=== PATIENT | female | born 1980 | race Caucasian/White ===

== ENCOUNTER 2021-01-03 21:48 | Emergency (ER) | payer OTHER, SELFPAY ==
--- NOTE | ~2021-01-03 | US_ITS ---
EXAMINATION: US OBSTETRICAL ULTRASOUND CLINICAL INFORMATION: Vaginal bleeding. Pelvic pain. COMPARISON: None. LMP: 11/09/2020. Gestational age by maternal dates is 8 weeks, 0 days. Estimated date of delivery by maternal dates is 08/16/2021. TECHNIQUE: Ultrasound of the maternal pelvis is performed using transabdominal and transvaginal transducers. Transvaginal imaging is performed due to inadequate visualization transabdominally. M-mode Doppler is also performed. FINDINGS: There is a single intrauterine gestational sac with visible yolk sac, embryo/fetus, and cardiac activity. There is no significant subchorionic hemorrhage or hematoma. HR: 155 beats per minute. CRL (crown rump length): 1.23 cm (7 weeks 4 days +/- 4 days). MARIO (estimated date of delivery): 08/19/2021 +/- 4 days. MATERNAL ADNEXA: The right maternal ovary measures 3.2 x 1.7 x 2.5 cm. There is a 2.3 cm corpus luteum within the right ovary. The left maternal ovary measures 3.3 x 1.6 x 1.8 cm. There is no significant maternal adnexal mass. Small pelvic free fluid. US/US OB <= 14 weeks fetus IMPRESSION: 1. Single live intrauterine gestation with ultrasound gestational age of 7 weeks 4 days +/- 4 days. 2. Estimated date of delivery is 08/19/2021 +/- 4 days. 3. No maternal adnexal mass or abnormal pelvic ascites.
[2021-01-03 21:50] VITALS: BP 119/75; PULSE 79; RESP 18; TEMP 36.6; O2SAT 97; BMI 20.9
[2021-01-03 22:02] LABS: MANUAL DIFF FLAG NO
[2021-01-03 22:03] LABS: Basophils Percent Auto 0.5 % (0-2); Eosinophils Absolute Auto 0.1 X10*3/uL (0.0-0.4); Eosinophils Percent Auto 1.4 % (0-4); Hematocrit 35.8 % (37-47); Hemoglobin 11.9 g/dl (12.0-16.0); Imm Gran Abs Auto 0.01 X10*3/uL (0.00-0.03); Imm Gran Pct Auto 0.2 % (0.0-0.4); Lymphocytes Absolute Auto 2.2 X10*3/uL (1.2-4.9); Lymphocytes Percent Auto 39.6 % (20-40); Mean Corpuscular HGB Conc 33.2 g/dl (31.0-35.0); Mean Corpuscular Hemoglobin 29.7 pg (27.0-33.0); Mean Corpuscular Volume 89.3 fL (80-98); Mean Platelet Volume 9.2 fL (9.4-12.3); Monocytes Absolute Auto 0.4 X10*3/uL (0.1-1.2); Monocytes Percent Auto 7.5 % (2-11); Neutrophils Absolute Auto 2.8 X10*3/uL (2.0-8.3); Neutrophils Percent Auto 50.8 % (45-73); Platelet Count 224 X10*3/uL (160-400); Red Blood Count 4.01 X10*6/uL (4.20-5.50); White Blood Count 5.6 X10*3/uL (4.8-10.8)
[2021-01-03 22:08] LABS: Glucose Urine UA NEG (NEG); Leukocyte Esterase Urine NEG (NEG); Nitrite Urine NEG (NEG); Specific Gravity - Urine 1.025 (1.005-1.025); Urine Blood TRACE (NEG); Urine Ketones NEG (NEG); Urine Protein NEG (NEG-TRACE)
[2021-01-03 22:10] LABS: Appearance Urine CLEAR; Color Urine YELLOW
[2021-01-03 22:21] LABS: Mucus Urine 3+ /LPF; Squamous Epithelial Cell Urine TRACE /LPF; WBC Urine 0-2 /HPF (0-4)
[2021-01-03 22:29] LABS: Alanine Aminotransferase 19 U/L (0-31); Albumin Level 4.3 g/dL (3.5-5.0); Alkaline Phosphatase 72 U/L (39-117); Anion Gap 13 (12-20); Aspartate Amino Transferase 17 U/L (5-31); Bilirubin Total 0.7 mg/dL (0.0-1.0); Blood Urea Nitrogen 14 mg/dL (9-16); Calcium 8.9 mg/dL (8.4-10.2); Carbon Dioxide 22 mmol/L (22-29); Chloride 109 mmol/L (96-108); Creatinine Clr Calc Pharmacy 108.1; Estimated Glomerular Filt Rate > 60; Glucose Random 87 mg/dL (60-115); Potassium 4.2 mmol/L (3.3-5.1); Sodium 140 mmol/L (135-145); Total Protein 6.8 g/dL (6.5-8.0)
[2021-01-03 22:37] LABS: HCG Quantitative 7984 mIU/mL
--- NOTE | 2021-01-04 01:23 | ED_ITS ---
HPI - General Chief complaint: Vaginal Bleeding Stated complaint: cramping/bleeding () Time Seen by Provider: 01/04/21 00:06 Source: patient Mode of arrival: ambulatory History of Present Illness HPI Narrative: 40-year-old female who presents with LMP at the end of October and took 3 tests 3-5 days ago and now presents with onset of crampy lower abdominal pain associated with vaginal bleeding that started approximately 1830 last night. This is not been associated with fever, chills, nausea, vomiting, diarrhea, or urinary pain/burning/frequency. Related Data Allergies Allergy/AdvReac Type Severity Reaction Status Date / Time sulfamethoxazole Allergy Hives Verified 01/03/21 21:53 [From Bactrim] trimethoprim [From Bactrim] Allergy Hives Verified 01/03/21 21:53 Review of Systems Review of Systems: Pertinent positives and negatives as stated in HPI 10 point review of systems is otherwise negative. PMFSH Past Medical History Source: nursing notes reviewed Medical History No known health problems Social History Social History Patient Tobacco Use Status: Never used Tobacco Use of substances other than those prescribed or required for medical reasons: No Advance Directives: No Advance Directives Information Provided: Yes Patient : Yes Physical Exam Vital Signs: Vital Signs: Last Vital Signs Temp 98 F 01/03/21 21:50 Pulse 86 01/04/21 01:49 Resp 16 01/04/21 01:49 BP 129/77 01/04/21 01:49 Pulse Ox 98 01/04/21 01:49 Body Mass Index 20.9 VITAL SIGNS: Reviewed. GENERAL: Well developed, well nourished, in no acute distress. HEAD: Normocephalic/atraumatic, EYES: PERRLA, EOMI EARS: Ext canals without abnormality OROPHARYNX: no oral lesions noted, posterior pharynx clear LUNGS: Normal breath sounds. No adventitious sounds or accessory muscle use. SpO2<97> CARDIOVASCULAR: Regular rate and rhythm without noted murmurs ABDOMEN: Soft, tenderness to palpation across suprapubic and left lower quadrant/pelvic area, non-distended with bowel sounds. Course Course Course Narrative: This is a 40-year-old female with history and clinical presentation suspicious for SAB and will rule out ectopic. Review of all investigations negative for acute findings other than threatened , IUP, results were explained to the patient that these were preliminary as patient strongly communicating that she needs to get home to her kids as the java technical architect is no longer able to stay. It was strongly stressed to the patient that these were prelim results and that the official read from the radiologist had not been completed. She was also instructed to follow-up with an quality improvement manager within the next 1-2 days for further care. MDM - OB/Uterine Contractions Lab Data Result diagrams: 01/03/21 21:57 01/03/21 21:57 Labs: Lab Results 01/03/21 01/03/21 01/03/21 Range/Units 21:57 21:57 22:02 WBC 5.6 (4.8-10.8) X10*3/uL RBC 4.01 L (4.20-5.50) X10*6/uL Hgb 11.9 L (12.0-16.0) g/dl Hct 35.8 L (37-47) % MCV 89.3 (80-98) fL MCH 29.7 (27.0-33.0) pg MCHC 33.2 (31.0-35.0) g/dl RDW 13.0 (11.0-16.0) % Plt Count 224 (160-400) X10*3/uL MPV 9.2 L (9.4-12.3) fL Immature Gran % (Auto) 0.2 (0.0-0.4) % Neut % (Auto) 50.8 (45-73) % Lymph % (Auto) 39.6 (20-40) % [place] % (Auto) 7.5 (2-11) % Eos % (Auto) 1.4 (0-4) % Baso % (Auto) 0.5 (0-2) % Lymph # (Auto) 2.2 (1.2-4.9) X10*3/uL [place] # (Auto) 0.4 (0.1-1.2) X10*3/uL Eos # (Auto) 0.1 (0.0-0.4) X10*3/uL Baso # (Auto) 0.0 (0.0-0.2) X10*3/uL Abs Immat Gran (auto) 0.01 (0.00-0.03) X10*3/uL Absolute Neuts (auto) 2.8 (2.0-8.3) X10*3/uL Absolute Nucleated RBC 0.000 (0.0-0.012) X10*3/uL Nucleated RBC % (auto) 0.0 (0.0-0.2) /100WBC Sodium 140 (135-145) mmol/L Potassium 4.2 (3.3-5.1) mmol/L Chloride 109 H (96-108) mmol/L Carbon Dioxide 22 (22-29) mmol/L Anion Gap 13 (12-20) BUN 14 (9-16) mg/dL Creatinine 0.65 (0.5-1.4) mg/dL Estim Creat Clear Calc 108.1 Estimated GFR > 60 Random Glucose 87 (60-115) mg/dL Calcium 8.9 (8.4-10.2) mg/dL Total Bilirubin 0.7 (0.0-1.0) mg/dL AST 17 (5-31) U/L ALT 19 (0-31) U/L Alkaline Phosphatase 72 (39-117) U/L Total Protein 6.8 (6.5-8.0) g/dL Albumin 4.3 (3.5-5.0) g/dL Beta HCG, Quant 7984 mIU/mL Urine Color YELLOW Urine Appearance CLEAR Urine pH 6.0 (5.0-8.0) Ur Specific [place] 1.025 (1.005-1.025) Urine Protein NEG (NEG-TRACE) MG/DL Urine Glucose (UA) NEG (NEG) MG/DL Urine Ketones NEG (NEG) MG/DL Urine Blood TRACE (NEG) Urine Nitrite NEG (NEG) Ur Leukocyte Esterase NEG (NEG) Urine RBC 1-4 (0) /HPF Urine WBC 0-2 (0-4) /HPF Ur Squamous Epith Cells TRACE /LPF Urine Bacteria NONE /LPF Urine Mucus 3+ /LPF Discharge Plan Discharge Clinical Impression: Threatened , Patient Disposition: Home, Self-Care Instructions: Threatened Miscarriage (ED) Additional Instructions: 1. Take Tylenol for discomfort. 2. Set up an appointment for care and begin taking vitamins. Return to the ER for worsening of your symptoms. Referrals: Physician,Nonstaff [Primary Care Provider] - 2 days
[2021-01-04 01:49] VITALS: BP 129/77; PULSE 86; RESP 16; O2SAT 98
[2021-01-04 02:00] VITALS: BP 120/74; PULSE 70; RESP 18; O2SAT 98
== END 2021-01-04 02:34 | disposition home or self-care (01) ==
PROVIDERS: Emergency Provider Student in an Organized Health Care Education/Training Program
DX: O20.0 Threatened abortion (principal); O09.529 Supervision of elderly multigravida, unspecified trimester; Z3A.00 Weeks of gestation of pregnancy not specified
CPT/HCPCS: 36415; 76801; 80053; 81001; 84702; 85025; 99284